=== PATIENT | male | born 1990 | race African-American/Black ===

== ENCOUNTER 2017-11-07 17:20 | Emergency (ER) | payer SELFPAY ==
[~2017-11-07] VITALS: Ht 162.6 cm; Wt 77.0 kg
[~2017-11-07 17:20] MED LIST: DIVA500T52 PO; QUET100T PO
[2017-11-07 17:34] VITALS: BP 138/88
[2017-11-07] MEDS ORDERED: ALBU8HFA IH (17:36)
[2017-11-07] MEDS ORDERED: IBUPROFEN 800 MG TABLET PO ONE (19:30)
== END 2017-11-07 20:07 | disposition home or self-care (01) ==
LOC: EMS 17:22
DX: M25.571 Pain in right ankle and joints of right foot (principal); G89.29 Other chronic pain
CPT/HCPCS: 99284

== ENCOUNTER 2021-05-09 12:34 | Emergency (ER) | payer MEDICAID ==
[~2021-05-09] VITALS: Ht 170.2 cm; Wt 77.3 kg
[~2021-05-09 12:34] MED LIST changes: +ALBU8HFA IH; -DIVA500T52 PO; -QUET100T PO
[2021-05-09 12:35] VITALS: BP 126/78
== END 2021-05-09 14:30 | disposition home or self-care (01) ==
LOC: EMS 12:34
DX: S63.502A Unspecified sprain of left wrist, initial encounter (principal); F31.9 Bipolar disorder, unspecified; F17.210 Nicotine dependence, cigarettes, uncomplicated; W19.XXXA Unspecified fall, initial encounter; Y93.89 Activity, other specified; Y92.89 Other specified places as the place of occurrence of the external cause; Y99.8 Other external cause status
CPT/HCPCS: 99284; 73110-TC; 73130-TC; Z7502

== ENCOUNTER 2022-04-10 16:56 | Emergency (ER) | payer SELFPAY ==
[~2022-04-10] VITALS: Ht 162.6 cm; Wt 75.0 kg
[2022-04-10] MEDS ORDERED: BACLOFEN 10 MG TABLET PO ONE (18:15)
[2022-04-10] MEDS ORDERED: LIDOCAINE 5% TRANSDERMAL PATCH TD ONE (18:15)
[2022-04-10] MEDS ORDERED: IBUPROFEN 600 MG TABLET PO ONE (18:15)
[2022-04-10] MEDS ORDERED: IBUP-2070 PO (20:56)
[2022-04-10] MEDS ORDERED: BACL10TA PO (20:57)
[2022-04-10 21:12] VITALS: BP 120/77
== END 2022-04-10 21:18 | disposition home or self-care (01) ==
LOC: EMS 16:56
DX: Z04.1 Encounter for examination and observation following transport accident (principal); M54.2 Cervicalgia; R07.9 Chest pain, unspecified
CPT/HCPCS: 71046; 72040; 99284